=== PATIENT | female | born 1980 | race Caucasian/White ===

== ENCOUNTER → 2022-01-30 18:23 | Outpatient (CLI) | payer BC, SELFPAY ==
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
== END ==
PROVIDERS: Visit Provider Physician Assistant
DX: M79.89 Other specified soft tissue disorders (principal); S52.201A Unspecified fracture of shaft of right ulna, initial encounter for closed fracture; V19.3XXA Pedal cyclist (driver) (passenger) injured in unspecified nontraffic accident, initial encounter
CPT/HCPCS: 73080; 73090